=== PATIENT | male | born 2000 | race Caucasian/White ===

== ENCOUNTER 2018-08-19 14:27 | Emergency (ER) | payer BC ==
[2018-08-19 14:59] VITALS: BP 142/75
--- NOTE | 2018-08-19 15:04 | UC ---
Ear Complaint HPI - HPI Summary HPI Summary: Pt presents with c/o left ear pain, feeling of fullness and "muffled sound" x 2 days. Denies fever or injury. Has URI like symptoms. - History of Current Complaint Chief Complaint: UCEar Stated Complaint: LEFT EAR CONCERN Time Seen by Provider: 08/19/18 15:02 Hx Obtained From: Patient Onset/Duration: Sudden Onset, Lasting Days, Still Present Severity Initially: Moderate Severity Currently: Moderate Pain Intensity: 5 Associated Signs/Symptoms: Positive: Hearing Loss, URI Symptoms - Allergies/Home Medications Allergies/Adverse Reactions: Allergies Allergy/AdvReac Type Severity Reaction Status Date / Time No Known Allergies Allergy Verified 08/19/18 14:56 PMH/Surg Hx/FS Hx/Imm Hx Previously Healthy: Yes - Surgical History Surgical History: None - Family History Known Family History: Positive: Cardiac Disease - Social History Occupation: Employed Full-time Lives: With Family Alcohol Use: None Substance Use Type: None Smoking Status (MU): Never Smoked Tobacco Have You Smoked in the Last Year: No Review of Systems All Other Systems Reviewed And Are Negative: Yes Constitutional: Positive: Negative Skin: Positive: Negative Eyes: Positive: Negative ENT: Positive: Ear Ache - left ear, Sinus Congestion Respiratory: Positive: Negative Cardiovascular: Positive: Negative Gastrointestinal: Positive: Negative Genitourinary: Positive: Negative Motor: Positive: Negative Neurovascular: Positive: Negative Musculoskeletal: Positive: Negative Neurological: Positive: Negative Psychological: Positive: Negative Is Patient Immunocompromised?: No Physical Exam Triage Information Reviewed: Yes Appearance: Well-Appearing Vital Signs: Initial Vital Signs Temp 99.8 F 08/19/18 14:56 Pulse 95 08/19/18 14:56 Resp 16 08/19/18 14:56 BP 142/75 08/19/18 14:56 Pulse Ox 100 08/19/18 14:56 Vital Signs Reviewed: Yes Eye Exam: Normal ENT: Positive: Nasal congestion, Other - left outer ear canal erythema and mild swelling Dental Exam: Normal Neck exam: Normal Respiratory Exam: Normal Respiratory: Positive: No respiratory distress Musculoskeletal Exam: Normal Neurological Exam: Normal Psychological Exam: Normal Skin Exam: Normal Ear Complaint Course/Dx - Differential Dx/Diagnosis Differential Diagnosis/HQI/PQRI: Cerumen Impaction, Otitis Externa, Otitis Media , URI Provider Diagnosis: Left otitis externa Discharge - Sign-Out/Discharge Documenting (check all that apply): Patient Departure All imaging exams completed and their final reports reviewed: No Studies - Discharge Plan Condition: Stable Disposition: HOME Prescriptions: Ciproflox/Dexameth OTIC.SUSP* [Ciprodex OTIC.SUSP*] 3 drop LEFT EAR Q12H 7 Days #1 btl Patient Education Materials: Otitis Externa (ED) Referrals: [facility] [Outside] - If Needed No Primary Care Phys,NOPCP [Primary Care Provider] - - Billing Disposition and Condition Condition: STABLE Disposition: Home
== END 2018-08-19 15:11 | disposition home or self-care (01) ==
LOC: UCCORT 14:27
DX: H60.92 Unspecified otitis externa, left ear (principal); R09.81 Nasal congestion
CPT/HCPCS: 99202; G0463